=== PATIENT | female | born 1975 | race Caucasian/White ===

== ENCOUNTER 2017-01-25 17:01 | Emergency (ER) | payer OTHER ==
[~2017-01-25] VITALS: Ht 175.3 cm; Wt 89.4 kg
[~2017-01-25 17:01] MED LIST: BUSPIRONE HCL10 MG PO; CEPHALEXIN500 M1 PO; CITALOPRAM HYDR40 M1 PO; COL100 PO; FLONS; GABAPENTIN TAB600 M1 PO; GABAPENTIN300 M2 PO; GABAPENTIN800 M1 PO; IND20 PO; KLO0.5 PO; LAM100 PO; MAXALT-MLT10 MG PO; NORCO1 TA2 PO; PER5 PO; PROPRANOLOL PO; RANITIDINE HCL150 M1 PO; ROB750 PO; SIMVASTATIN40 M1 PO; SUMATRIPTAN SU100 M1 PO; TIZANIDINE4 M1 PO; TOPIRAMATE100 M1 PO; TRIGLIDE160 M1 PO; WAL-ITIN10 MG PO; [UNRECOGNIZED DRUG - CODE] PO
[2017-01-25 19:27] LABS: BASOPHIL % 0.7 % (0-2); PLATELET COUNT 354 x10^3mcL (130-400)
[2017-01-25 19:31] LABS: RED CELL DISTRIBUTION WIDTH 14.6 % (11.5-14.5)
[2017-01-25 19:40] LABS: CALCIUM 9.4 mg/dL (8.5-10.1); CARBON DIOXIDE 25.7 mmol/L (21-32); CHLORIDE SERUM 105 mmol/L (98-107); CREATININE SERUM 0.9 mg/dL (0.6-1.0); GFR1 > 60 mL/min; GLUCOSE SERUM 89 mg/dL (74-106); POTASSIUM SERUM 4.2 mmol/L (3.5-5.1); SODIUM SERUM 140 mmol/L (136-145)
[2017-01-25 19:45] LABS: ALBUMIN 3.7 g/dL (3.4-5.0); ALKALINE PHOSPHATASE 102 U/L (46-116); ALT/SGPT 75 U/L (14-59); AST/SGOT 37 U/L (15-37); BILIRUBIN TOTAL 0.24 mg/dL (0.20-1.00); TOTAL PROTEIN, SERUM 7.6 g/dL (6.4-8.2); URIC ACID 6.9 mg/dL (2.6-6.0)
[2017-01-25 21:42] VITALS: BP 158/91
== END 2017-01-25 21:43 | disposition home or self-care (01) ==
LOC: ED 17:01
PROVIDERS: Emergency Medicine
DX: G89.29 Other chronic pain (principal); M54.5 Low back pain; I10 Essential (primary) hypertension
CPT/HCPCS: J1885; J2405; J3010

== ENCOUNTER 2017-06-03 09:40 | Inpatient (IN) | payer OTHER ==
[~2017-06-03] VITALS: Ht 167.6 cm; Wt 87.3 kg
[2017-06-03 10:54] LABS: BASOPHIL % 0.7 % (0-2); PLATELET COUNT 346 x10^3mcL (130-400); RED CELL DISTRIBUTION WIDTH 13.7 % (11.5-14.5)
[2017-06-03 11:09] LABS: CALCIUM 9.1 mg/dL (8.5-10.1); CARBON DIOXIDE 28.1 mmol/L (21-32); CREATININE SERUM 2.2 mg/dL (0.6-1.0); POTASSIUM SERUM 3.5 mmol/L (3.5-5.1)
[2017-06-03 11:14] LABS: ALBUMIN 3.7 g/dL (3.4-5.0); BILIRUBIN TOTAL 0.7 mg/dL (0.20-1.00); TOTAL PROTEIN, SERUM 7.6 g/dL (6.4-8.2)
[2017-06-03] MEDS ORDERED: CELEXA40 MG PO (11:49)
[2017-06-03] MEDS ORDERED: BUS10 PO (11:50)
[2017-06-03 13:27] VITALS: BP 82/51
[2017-06-03] MEDS ORDERED: NEU300 PO (13:34)
[2017-06-03] MEDS ORDERED: BUSPIRONE HCL5 MG PO (13:38)
[2017-06-03 13:40] LABS: RED BLOOD CELLS 3.41 M/mm3 (4.10-5.10)
[2017-06-03 14:38] LABS: T3 TOTAL 0.86 ng/mL
[2017-06-03 14:48] LABS: TOTAL IRON BINDING CAPACITY 271 ug/dL (250-450)
[2017-06-03 14:53] LABS: IRON 12 ug/dL (50-170)
[2017-06-03 15:11] LABS: MAGNESIUM 2.2 mg/dL (1.8-2.4); PHOSPHOROUS 4.7 mg/dL (2.5-4.9)
[2017-06-03 15:12] LABS: CHOLESTEROL/HDL RATIO 5.5
[2017-06-03 15:24] LABS: FREE THYROXINE INDEX 2.6 ug/dL (1.4-4.5); T4(THYROXINE) 7.9 ug/dL (4.7-13.3)
[2017-06-03 16:55] VITALS: BP 110/62
[2017-06-03 17:32] VITALS: BP 95/52
[2017-06-03 20:41] VITALS: BP 128/72
[2017-06-04 06:37] LABS: PLATELET COUNT 348 x10^3mcL (130-400); RED CELL DISTRIBUTION WIDTH 13.2 % (11.5-14.5)
[2017-06-04 06:42] VITALS: BP 144/82
[2017-06-04 06:42] LABS: BASOPHIL % 0 % (0-2)
[2017-06-04 07:40] LABS: CALCIUM 9.2 mg/dL (8.5-10.1); CARBON DIOXIDE 25.1 mmol/L (21-32); CREATININE SERUM 1.1 mg/dL (0.6-1.0); POTASSIUM SERUM 4.3 mmol/L (3.5-5.1)
[2017-06-04 10:00] VITALS: BP 152/84
[2017-06-04 10:48] LABS: MAGNESIUM 2.1 mg/dL (1.8-2.4); PHOSPHOROUS 3.3 mg/dL (2.5-4.9)
[2017-06-04 20:25] VITALS: BP 143/68
[2017-06-05 07:02] LABS: RED CELL DISTRIBUTION WIDTH 13.7 % (11.5-14.5)
[2017-06-05 07:29] LABS: PLATELET COUNT 471 x10^3mcL (130-400)
[2017-06-05 07:52] LABS: CALCIUM 9.1 mg/dL (8.5-10.1); CARBON DIOXIDE 26.3 mmol/L (21-32); CHLORIDE SERUM 100 mmol/L (98-107); GFR1 > 60 mL/min; GLUCOSE SERUM 147 mg/dL (74-106); MAGNESIUM 2.6 mg/dL (1.8-2.4); PHOSPHOROUS 3.1 mg/dL (2.5-4.9); POTASSIUM SERUM 5.1 mmol/L (3.5-5.1); SODIUM SERUM 135 mmol/L (136-145)
[2017-06-05 08:40] LABS: BAND NEUTROPHIL 5 % (0-10); BASOPHIL 0 % (0-2); MONOCYTE 5 % (0-7); SEGMENTED NEUTROPHILS 82 % (37-75)
[2017-06-05 08:41] LABS: PLATELET MORPHOLOGY GIANT PLATELET SEEN
[2017-06-05] MEDS ORDERED: NOR10T PO (14:47)
[2017-06-05] MEDS ORDERED: MELOXICAM15 M1 PO (14:47)
[2017-06-05] MEDS ORDERED: IMITREX50 MG PO (14:48)
[2017-06-05] MEDS ORDERED: TIZANIDINE4 M1 PO (14:48)
[2017-06-05] MEDS ORDERED: HYDROXYZINE HYD25 MG PO (14:48)
[2017-06-05] MEDS ORDERED: AMBIEN5 MG PO (14:49)
[2017-06-05] MEDS ORDERED: BUSPIRONE HCL15 MG PO (14:49)
[2017-06-05] MEDS ORDERED: BUSPIRONE HCL15 MG (14:49)
[2017-06-05] MEDS ORDERED: TOR10 PO (14:49)
[2017-06-05] MEDS ORDERED: CELEXA40 MG PO (14:50)
[2017-06-05] MEDS ORDERED: TRAZODONE50 M1 PO (14:50)
[2017-06-05 17:49] VITALS: BP 168/99
[2017-06-05 21:00] VITALS: BP 158/84
[2017-06-06 05:32] VITALS: BP 152/86
[2017-06-06 06:22] VITALS: BP 154/84
[2017-06-06 08:13] LABS: BASOPHIL % 0.4 % (0-2); RED CELL DISTRIBUTION WIDTH 13.9 % (11.5-14.5)
[2017-06-06 08:18] LABS: CALCIUM 8.9 mg/dL (8.5-10.1); CARBON DIOXIDE 26.1 mmol/L (21-32); CREATININE SERUM 1.2 mg/dL (0.6-1.0); MAGNESIUM 1.7 mg/dL (1.8-2.4); POTASSIUM SERUM 3.8 mmol/L (3.5-5.1)
[2017-06-06 08:19] LABS: PLATELET COUNT 446 x10^3mcL (130-400)
[2017-06-06 10:22] VITALS: BP 115/55
[2017-06-06] MEDS ORDERED: CLINDAMYCIN HC300 MG PO (12:37)
[2017-06-06] MEDS ORDERED: BD LACTINEX1.4 MG PO (12:37)
[2017-06-06] MEDS ORDERED: BACO TOP (12:45)
[2017-06-06] MEDS ORDERED: HIBICLENS118 ML TOP (12:45)
[2017-06-06 13:14] VITALS: BP 115/55
[2017-06-07 07:28] VITALS: Ht 167.6 cm; Wt 87.3 kg
== END 2017-06-06 14:25 | disposition home or self-care (01) | DRG 364 ==
LOC: ED 09:40 → MU 11:35 → DU 11:35 → MU 06-04 09:58
PROVIDERS: Emergency Medicine; Family Medicine; Family Medicine Sports Medicine; Surgery
PROC: 0J990ZZ Drainage of Buttock Subcutaneous Tissue and Fascia, Open Approach (ICD-10-PCS; principal; 2017-06-04 12:30)
DX: L03.317 Cellulitis of buttock (principal); N17.0 Acute kidney failure with tubular necrosis; G89.29 Other chronic pain; E87.1 Hypo-osmolality and hyponatremia; G43.909 Migraine, unspecified, not intractable, without status migrainosus; D72.829 Elevated white blood cell count, unspecified; L02.31 Cutaneous abscess of buttock; I10 Essential (primary) hypertension; E86.0 Dehydration; E78.5 Hyperlipidemia, unspecified; F31.30 Bipolar disorder, current episode depressed, mild or moderate severity, unspecified; X58.XXXA Exposure to other specified factors, initial encounter; D50.9 Iron deficiency anemia, unspecified; F43.10 Post-traumatic stress disorder, unspecified; M54.9 Dorsalgia, unspecified; Z90.710 Acquired absence of both cervix and uterus; Y93.89 Activity, other specified; Y92.89 Other specified places as the place of occurrence of the external cause; Y99.8 Other external cause status; Z68.29 Body mass index [BMI] 29.0-29.9, adult; Z82.3 Family history of stroke; Z83.3 Family history of diabetes mellitus; Z81.8 Family history of other mental and behavioral disorders
CPT/HCPCS: 83880; 84439; J0690; J1100; J1630; J1885; J1956; J2250; J2270; J2405; J2704; J2916; J3010; J3490; J7030; J7040; J7120; Q0092

== ENCOUNTER 2019-05-08 07:46 | Emergency (ER) | payer OTHER ==
[~2019-05-08] VITALS: Ht 167.6 cm; Wt 82.6 kg
[~2019-05-08 07:46] MED LIST changes: +AMBIEN5 MG PO; +BACO TOP; +BD LACTINEX1.4 MG PO; +BUS10 PO; +BUSPIRONE HCL15 MG; +BUSPIRONE HCL15 MG PO; +BUSPIRONE HCL5 MG PO; +CELEXA40 MG PO; +CLINDAMYCIN HC300 MG PO; +HIBICLENS118 ML TOP; +HYDROXYZINE HYD25 MG PO; +IMITREX50 MG PO; +MELOXICAM15 M1 PO; +NEU300 PO; +NOR10T PO; +TOR10 PO; +TRAZODONE50 M1 PO
[2019-05-08 07:56] VITALS: BP 117/75; Ht 167.6 cm; Wt 82.6 kg
== END 2019-05-08 08:56 | disposition home or self-care (01) ==
LOC: ED 07:46
DX: N39.0 Urinary tract infection, site not specified (principal); I10 Essential (primary) hypertension; Z90.710 Acquired absence of both cervix and uterus; Z98.890 Other specified postprocedural states; Z87.442 Personal history of urinary calculi
CPT/HCPCS: J0696

== ENCOUNTER 2019-12-15 12:30 | Emergency (ER) | payer OTHER ==
[~2019-12-15] VITALS: Ht 167.6 cm; Wt 83.5 kg
[2019-12-15 13:13] VITALS: Ht 167.6 cm; Wt 83.5 kg
[2019-12-15 14:28] LABS: CALCIUM 9.4 mg/dL (8.5-10.1); CARBON DIOXIDE 26.8 mmol/L (21-32); CHLORIDE SERUM 98 mmol/L (98-107); GFR1 > 60 mL/min; GLUCOSE SERUM 109 mg/dL (74-106); POTASSIUM SERUM 3.7 mmol/L (3.5-5.1); SODIUM SERUM 133 mmol/L (136-145)
[2019-12-15 14:29] LABS: BASOPHIL % 0.5 % (0-2); PLATELET COUNT 455 x10^3mcL (130-400); RED CELL DISTRIBUTION WIDTH 14.8 % (11.5-14.5)
[2019-12-15 14:32] LABS: ALKALINE PHOSPHATASE 103 U/L (46-116); ALT/SGPT 39 U/L (14-59); AMYLASE 50 U/L (25-115); AST/SGOT 25 U/L (15-37); BILIRUBIN TOTAL 0.2 mg/dL (0.20-1.00); LIPASE 152 IU/L (73-393); TOTAL PROTEIN, SERUM 7.7 g/dL (6.4-8.2)
[2019-12-15 14:45] LABS: UA SPECIFIC GRAVITY 1.015 (1.005-1.035); microscopic required? YES; urine erythrocyte 2+ (NEGATIVE)
[2019-12-15 15:04] LABS: AMPHETAMINE QUAL UR NONE DETECTED (See below)
[2019-12-15 16:40] VITALS: BP 135/97
== END 2019-12-15 16:40 | disposition home or self-care (01) ==
LOC: ED 12:30
PROVIDERS: Emergency Medicine
DX: K62.5 Hemorrhage of anus and rectum (principal); I10 Essential (primary) hypertension; R10.30 Lower abdominal pain, unspecified; G89.29 Other chronic pain; Z88.5 Allergy status to narcotic agent; Z98.890 Other specified postprocedural states; Z90.710 Acquired absence of both cervix and uterus; Z87.442 Personal history of urinary calculi
CPT/HCPCS: J1885; J2270; J2405; J7030; Q9967